=== PATIENT | female | born 1990 | race Caucasian/White ===

== ENCOUNTER → 2019-01-24 | Outpatient (CLI) | payer SELFPAY ==
[~2019-01-24] MED LIST: METRONIDAZOLE500 MG PO; NO HOME MEDICATIONS; NORCO 325 MG-51 TAB PO; PREDNISONE20 MG PO; ZITHROMAX Z PA250 MG PO
== END ==
LOC: ZCOL.LAB 13:31 → ZLAB.AMS 13:31
DX: Z01.812 Encounter for preprocedural laboratory examination (principal); Z86.14 Personal history of Methicillin resistant Staphylococcus aureus infection